=== PATIENT | male | born 1990 ===

== ENCOUNTER 2018-05-03 17:49 | Emergency (ER) | payer MEDICAID ==
--- NOTE | 2018-05-03 20:40 | C.PDOC ---
History Of Present Illness 28 year old male presents to the ED for evaluation of right shoulder and right posterior forearm pain which began after he sustained a fall prior to arrival. Patient states he was on a ladder, about 5 feet high, when he accidentally fell and landed onto his right shoulder and right arm. Patient also reports hitting his head and experiencing a brief episode of loss of consciousness which may have lasted a few seconds. Patient denies vomiting or headache since the incident as well as vision change, back pain, or extremity numbness/weakness. Time Seen by Provider: 05/03/18 19:20 Chief Complaint (Nursing): Upper Extremity Problem/Injury History Per: Patient History/Exam Limitations: no limitations Onset/Duration Of Symptoms: Hrs Current Symptoms Are (Timing): Still Present Quality: "Pain" Additional History Per: Patient Past Medical History Reviewed: Historical Data, Nursing Documentation, Vital Signs Vital Signs: Last Vital Signs Temp 97.4 F L 05/03/18 18:24 Pulse 69 05/03/18 18:24 Resp 20 05/03/18 18:24 BP 110/68 05/03/18 18:24 Pulse Ox 99 05/03/18 18:24 - Medical History PMH: No Chronic Diseases Surgical History: No Surg Hx Family History: States: Unknown Family Hx - Social History Hx Alcohol Use: No Hx Substance Use: No - Immunization History Hx Tetanus Toxoid Vaccination: Yes Hx Influenza Vaccination: No Hx Pneumococcal Vaccination: No Review Of Systems Constitutional: Negative for: Fever, Chills, Weakness Eyes: Negative for: Vision Change Cardiovascular: Negative for: Chest Pain Gastrointestinal: Negative for: Nausea, Vomiting Musculoskeletal: Positive for: Shoulder Pain (right ), Arm Pain (right forearm ). Negative for: Back Pain Skin: Negative for: Rash Neurological: Positive for: Other (head injury and loss of consciousness ). Negative for: Weakness, Numbness, Headache, Dizziness Physical Exam - Physical Exam Appears: Well, Non-toxic, No Acute Distress Skin: Normal Color, Warm, No Rash, Other (abrasions to right shoulder, over the AC joint. 10cm abrasion to right posterior forearm. no active bleeding. ) Head: Abrasion (small abrasion to occipital scalp. no active bleeding ), No Other (hematoma ) Eye(s): bilateral: Normal Inspection (no scleral icterus ), PERRL, EOMI Ear(s): Bilateral: Normal (no drainage ) Nose: Normal Throat: Normal (no swelling or injection ), Other (airway patent ) Neck: Normal ROM, Supple Chest: Symmetrical Respiratory: No Accessory Muscle Use, Other (normal inspiratory effort) Gastrointestinal/Abdominal: Soft, No Distention Back: Other (ambulating with steady upright gait) Extremity: No Normal ROM (limited ROM of right upper extremity, secondary to pain with active and passive range of motion ), Tenderness (to right shoulder, over the AC joint ), Capillary Refill (less than 2 seconds ), Other (able to lift right upper extremity above head ) Pulses: Left Radial: Normal, Right Radial: Normal Neurological/Psych: Oriented x3, Normal Speech, Normal Cognition, Normal Cranial Nerves (grossly intact ), Normal Sensation Gait: Steady ED Course And Treatment O2 Sat by Pulse Oximetry: 99 (on RA ) Pulse Ox Interpretation: Normal Medical Decision Making Medical Decision Making: Progress: Right shoulder and right forearm XR ordered and reviewed. On reassessment, patient is resting comfortably, showing no signs of distress, has an unremarkable neurological exam at this time, and is stable for discharge. Patient is advised to follow up with his PMD within 1-2 days for further evaluation. He is advised to return to the ED immediately if new symptoms develop or if current symptoms persist or worsen. Disposition Counseled Patient/Family Regarding: Diagnosis, Need For Followup - Disposition Referrals: Joann Alatorre MD [Staff Provider] - Disposition: HOME/ ROUTINE Disposition Time: 20:41 Condition: STABLE Prescriptions: Ibuprofen [Motrin Tab] 800 mg PO TID PRN #21 tab PRN Reason: Pain, Moderate (4-7) Instructions: Minor Head Injury (DC), Shoulder Sprain (DC) Forms: Gen Discharge Inst Welsh[employer] (Welsh), Work Excuse Print Language: TELUGU - Clinical Impression Clinical Impression: Acromioclavicular joint injury, Head injury due to trauma - PA / WET SANDER / Resident Statement MD/DO has reviewed & agrees with the documentation as recorded. - Scribe Statement The provider has reviewed the documentation as recorded by the Scribe (Dolores Ceja) All medical record entries made by the Scribe were at my direction and personally dictated by me. I have reviewed the chart and agree that the record accurately reflects my personal performance of the history, physical exam, medical decision making, and the department course for this patient. I have also personally directed, reviewed, and agree with the discharge instructions and disposition.
[2018-05-03 20:56] VITALS: BP 127/61; PULSE 71; RESP 16; TEMP 98
[2018-05-03 21:41] VITALS: O2SAT 99
--- NOTE | 2018-05-04 17:40 | RAD ---
PROCEDURE: Radiographs of the Right Forearm HISTORY: injury COMPARISON: None available. TECHNIQUE: Frontal and lateral views obtained. 2 views obtained. FINDINGS: BONES: No fracture or destructive lesion. JOINT SPACES: Unremarkable. OTHER FINDINGS: None. IMPRESSION: Unremarkable radiographs of the right forearm.
--- NOTE | 2018-05-04 17:42 | RAD ---
Date of service: 05/03/2018 PROCEDURE: Radiographs of the Right Shoulder HISTORY: injury COMPARISON: No prior. FINDINGS: BONES: Normal. No fracture. JOINTS: Normal. Glenohumeral and acromioclavicular joints preserved. No osteoarthritis. SOFT TISSUES: Normal. OTHER FINDINGS: None. IMPRESSION: Normal radiographs of the right shoulder.
== END 2018-05-03 20:51 | disposition home or self-care (01) ==
LOC: C.ER 17:49
DX: S09.90XA Unspecified injury of head, initial encounter (principal); S49.91XA Unspecified injury of right shoulder and upper arm, initial encounter; W11.XXXA Fall on and from ladder, initial encounter